=== PATIENT | male | born 1965 | race Caucasian/White ===

== ENCOUNTER 2017-11-01 08:04 | Emergency (ER) | payer OTHER ==
[2017-11-01 09:46] LABS: ADD MAN DIFF? NO
[2017-11-01 09:48] LABS: BASOPHILS % 0.8 % (0.0-2.0); EOSINOPHILS # 0.1 10^3/ul (0.0-0.5); EOSINOPHILS % 1.6 % (0.0-7.0); HEMOGLOBIN 15.2 g/dl (14.0-18.0); LYMPHOCYTES # 1.4 10^3/ul (0.8-2.9); LYMPHOCYTES % 36.1 % (15.0-51.0); MEAN CORPUSCULAR HGB CONC 33.8 g/dl (32.0-37.0); MEAN PLATELET VOLUME 11.2 fl (7.4-10.4); MONOCYTE # 0.2 10^3/ul (0.3-0.9); MONOCYTES % 4.8 % (0.0-11.0); NEUTROPHIL # 2.1 10^3/ul (1.6-7.5); NEUTROPHILS % 56.4 % (39.0-77.0); PLATELET COUNT 182 10^3/UL (140-415); RED BLOOD COUNT 5.42 10^6/ul (4.70-6.10); RED CELL DISTRIBUTION WIDTH 13.5 % (11.5-14.5)
[2017-11-01 09:48] LABS: WHITE BLOOD COUNT 3.7 10^3/ul (4.8-10.8)
[2017-11-01 10:05] LABS: ALANINE AMINOTRANSFERASE 40 IU/L (13-69); ALBUMIN/GLOBULIN RATIO 1.85; ALKALINE PHOSPHATASE 98 IU/L (42-121); ANION GAP 19 (8-16); ASPARTATE AMINO TRANSFERASE 29 IU/L (15-46); BILIRUBIN,INDIRECT 0.5 mg/dl (0-1.1); BILIRUBIN,TOTAL 0.5 mg/dl (0.2-1.3); BLOOD UREA NITROGEN 13 mg/dl (7-20); CALCIUM 9.7 mg/dl (8.4-10.2); CARBON DIOXIDE 26 mmol/L (21-31); CHLORIDE 106 mmol/L (97-110); CREATININE 0.87 mg/dl (0.61-1.24); GLUCOSE 110 mg/dl (70-220); POTASSIUM 4.6 mmol/L (3.5-5.1); SODIUM 146 mmol/L (135-144); TOTAL PROTEIN 7.7 g/dl (6.1-8.1)
[2017-11-01 10:23] LABS: FREE THYROXINE INDEX (Calc) 3.53 ug/ml (0.65-3.89); T4 (THYROXINE) 11.4 ug/dl (5.5-11.0)
[2017-11-01 10:37] LABS: THYROID STIMULATING HORMONE 0.399 MIU/L (0.465-4.680)
== END 2017-11-01 12:12 | disposition home or self-care (01) ==
LOC: FTE 08:04
DX: R42 Dizziness and giddiness (principal); I10 Essential (primary) hypertension
CPT/HCPCS: 36415; 80053; 84436; 84443; 84479; 85025; 93005; 99284-25

== ENCOUNTER 2018-02-03 10:02 | Emergency (ER) | payer OTHER | END 2018-02-03 10:47 | disposition home or self-care (01) | LOC: FTE 10:02 | DX: M54.31 Sciatica, right side (principal); I10 Essential (primary) hypertension | CPT/HCPCS: 99283-25; Z7502 ==